=== PATIENT | male | born 1965 | race Caucasian/White ===

== ENCOUNTER 2024-05-22 06:21 | Inpatient (IN) | payer BC, SELFPAY ==
[2024-05-13 10:21] LABS: Hematocrit 44.4 % (39.0-52.0); Mean Corp Hgb Conc. 33.8 g/dL (33.0-37.0); Mean Corpuscular Hgb 32.1 pg (27.0-31.0); Mean Corpuscular Volume 94.9 fL (80.0-94.0); Mean Platelet Volume 9.8 fL (7.4-10.4); Platelet Count 253 10^3/uL (130-400); Red Blood Cell Count 4.68 10^6/uL (4.70-6.10); Red Cell Dist. Width 13.1 % (11.5-14.5); White Blood Cell Count 6.6 10^3/uL (4.8-10.8)
[2024-05-13 10:44] LABS: INR 0.96; PT 13.1 Sec (11.4-14.6)
[2024-05-13 10:45] LABS: APTT 27.6 Sec (23.4-35.0)
[2024-05-13 11:00] LABS: Blood Urea Nitrogen 24 mg/dl (9-20); Carbon Dioxide 27 mmol/L (22-30); Chloride 101 mmol/L (98-107); Glucose 92 mg/dl (70-99); Potassium 4.6 mmol/L (3.5-5.1); Sodium 137 mmol/L (135-145); Urine Albumin Negative (Neg - Trace); Urine Bilirubin Negative (Negative); Urine Character Clear (Clear); Urine Color Yellow; Urine Glucose Negative (Negative); Urine Ketone Negative (Negative); Urine Leukocyte Negative (Negative); Urine Nitrite Negative (Negative); Urine Occult Blood Negative (Negative); Urine Urobilinogen Negative (Neg - 1+); eGFR > 60.00
[2024-05-13 14:21] VITALS: BMI 30.3
[2024-05-22] VITALS (22 sets, daily range): BP systolic 95–117; BP diastolic 45–69; BMI 30.3
[2024-05-22] MEDS: NEBCIN 480 MG/100 ML ENEMA 1 BOTTLE RECTAL (06:47)
[2024-05-22] MEDS: NORMOSOL-R/PLASMALYTE-A 1000 IV ×3 (06:48→21:16)
--- NOTE | 2024-05-22 09:34 | W.IMMPOSTOP ---
Surgical Immed Post Op Note
-
Primary Surgeon: Bebe
Assisting Surgeon: Ethan
Pre-op Diagnosis: prostate cancer
Post-op Diagnosis: same
Procedure Performed: Radical perineal prostatectomy, bladder neck reconstruction
Anesthesia Type: GET
Specimen / Cultures: prostate gland, bladder neck and urethral margins for frozen section
Estimated Blood Loss: 350 ml
Complications: None
Operative Findings: median lobe
[2024-05-22 10:11] LABS: Hematocrit 42.9 % (39.0-52.0); Hemoglobin 14.2 g/dL (13.0-18.0)
[2024-05-22 10:38] LABS: Blood Urea Nitrogen 16 mg/dl (9-20); Calcium 8.9 mg/dl (8.4-10.2); Carbon Dioxide 24 mmol/L (22-30); Chloride 104 mmol/L (98-107); Estimated Creatinine Clearance 117 ml/min; Glucose 169 mg/dl (70-99); Potassium 4.4 mmol/L (3.5-5.1); Sodium 137 mmol/L (135-145); eGFR > 60.00
[2024-05-22] MEDS: DETROL LA 4 MG PO (11:32)
[2024-05-22] MEDS: TYLENOL 650 MG PO (14:03)
[2024-05-22] MEDS: EFFEXOR XR 75 MG PO (14:33)
--- NOTE | 2024-05-22 15:25 | PTCARENOTE ---
Pt received from the PACU via bed. Transport was w/o incident. Pt is AAOx3, HRR, Lungs are clear, resp. easy. VSS, Pt is afebrile. Pt denies pain or nausea at this time. Pt with a bulky guaze dressing to perineum. Small amount of blood tinged
drainage noted. Pt has a yane in place, drainage to be expected. Will reinforce dressing as needed. Pt instructed on plan of care. Pt verbalized understanding of instructions. Call negron is within place.
[2024-05-22] MEDS: TORADOL 15 MG IV ×2 (16:34→21:20)
[2024-05-22] MEDS: COLACE 100 MG PO (16:34)
[2024-05-22] MEDS: COLACE PO (16:34)
[2024-05-22] MEDS: FLUSH (NSS) 2 FLUSH IV (21:22)
[2024-05-22] MEDS: POLYSPORIN/DOUBLE ANTIBIOTIC 1 APPLIC TOPICAL (23:08)
[2024-05-23] MEDS: TORADOL 15 MG IV ×4 (02:58→21:07)
[2024-05-23] MEDS: FLUSH (NSS) 2 FLUSH IV ×2 (02:59→03:16)
[2024-05-23 03:10] VITALS: BP 107/63
[2024-05-23] MEDS: VALIUM INJECTION 5 MG IV ×2 (03:16→14:06)
[2024-05-23 06:42] LABS: Hematocrit 37.3 % (39.0-52.0); Hemoglobin 12.7 g/dL (13.0-18.0); Mean Corpuscular Hgb 32.2 pg (27.0-31.0); Mean Corpuscular Volume 94.7 fL (80.0-94.0); Mean Platelet Volume 9.8 fL (7.4-10.4); Platelet Count 248 10^3/uL (130-400); Red Blood Cell Count 3.94 10^6/uL (4.70-6.10); Red Cell Dist. Width 13.2 % (11.5-14.5); White Blood Cell Count 9.5 10^3/uL (4.8-10.8)
[2024-05-23 07:25] LABS: Blood Urea Nitrogen 20 mg/dl (9-20); Calcium 8.9 mg/dl (8.4-10.2); Carbon Dioxide 27 mmol/L (22-30); Chloride 104 mmol/L (98-107); Estimated Creatinine Clearance 117 ml/min; Glucose 90 mg/dl (70-99); Potassium 3.9 mmol/L (3.5-5.1); Sodium 139 mmol/L (135-145); eGFR > 60.00
[2024-05-23] MEDS: NORMOSOL-R/PLASMALYTE-A 1000 IV (07:26)
[2024-05-23 08:00] VITALS: BP 123/73
[2024-05-23] MEDS: LEVAQUIN 100 IV (09:03)
[2024-05-23] MEDS: EFFEXOR XR 75 MG PO (09:04)
[2024-05-23] MEDS: COLACE 100 MG PO ×3 (09:04→19:17)
[2024-05-23] MEDS: POLYSPORIN/DOUBLE ANTIBIOTIC 1 APPLIC TOPICAL ×2 (09:05→21:09)
--- NOTE | 2024-05-23 09:21 | W.PN.URO.CBU ---
Today's Communication / Plan
-
encouraFGE OOB STOP IV TEACH MELO CARE
Assessment / Plan
-
stable post rad prostatectomy yane out encourage oob and po
Diagnosis
-
Date of Service: May 23, 2024
-
Patient Diagnosis:prostate cancer
Post Op Day: 1
Subjective
-
min pain
Objective
-
Vital Signs
Temp Pulse Resp BP Pulse Ox
98.5 F 66 18 123/73 98
05/23/24 08:00 05/23/24 08:00 05/23/24 08:00 05/23/24 08:00 05/23/24 08:00
Intake and Output
05/22/24 05/23/24 05/24/24
06:59 06:59 06:59
Intake Total 2000 / 1999
Output Total 860 / 860
Balance 1140 / 1140
Intake:
Oral fluids 600 / 600
IV fluids (Total) 1400 / 1400
normosol 200 / 200
IV piggybacks 0 / 0
Output:
Urine, Melo 860 / 860
Laboratory Results
05/23/24 05:12
05/23/24 05:12
Review of Systems
-
: Dark Urine
Physical Exam
-
General - well developed, well nourished, no acute distress
Chest - clear bilaterally
Abdomen - soft, non-tender, positive bowel sounds, no CVAT, no incisional pain or distention
Genitalia - normal
Rectal - normal
Skin - warm & dry with no rash
Neuro - AOx3, no motor deficits
Extremities - no clubbing, no cyanosis, no edema
Incision - clean, dry
Dressing - clean, dry, intact
Care Review
Data Reviewed
Discussed with: Nursing
[2024-05-23 11:20] VITALS: BP 140/86
--- NOTE | 2024-05-23 12:22 | VNURNOTE ---
Home Health Liaison met with patient and son at bedside to discuss [facility] nurse/therapy, visits, schedule and homebound status. Patient is agreeable and understands that visits at home will be 2-3 x per week to assess and teach medical management and
[place] care. [facility] brochure provided with contact information. Patient is aware that [facility] will contact them for start of care in 1-2 days after discharge from .
[facility] referral completed in [facility].
--- NOTE | 2024-05-23 14:35 | CM ---
Met with pt at bedside
Pt reports he lives with and [id number] in a 2 story home; 1 step to enter, 15 steps to 2nd fl. + 1/2 bath on FF
Independent, employed, drives
DME - no past hx
SNF/HH - no past hx
Has ride at discharge
PCP - Dawna Aragon
Pharm -[facility] - [place]
CM consult - [facility]/HH
Discussed with pt - agreeable to HH - no preference
TT sent to [facility] Liaison for HH needs
Plan - home with [facility]
[2024-05-23] MEDS: NORMOSOL-R/PLASMALYTE-A IV (15:44)
[2024-05-23 23:52] VITALS: BP 129/78
[2024-05-24 07:30] VITALS: BP 111/75
--- NOTE | 2024-05-24 07:37 | W.PN.UPDATE ---
Update Note
Progress Note Update
pt stable after RPP
urine clear
wound dry and instact
discharge today
--- NOTE | 2024-05-24 07:37 | W.DS.TRANS ---
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
-
Discharge Instructions:
Discharge Diagnosis/Procedures Prostate cancer
Diet No restrictions
Activity No strenuous activity
Additional Activity for 2 weeks
Driving Restrictions No driving for 2 weeks
Bathing Restrictions Shower off after each bowel movement the next 5
da
Other Services VN
Wound Care [facility] to remove Lopez catheter Sunday06/02/24 at
around 9:30 am
Instructions:
Stand-Alone Forms:
Changes to Home Medications: No
Discharge Medications:
DC Medications w/original date entered in [facility]
coQ10 (ubiquinol) 100 mg capsule 100 mg PO DAILY 05/15/24
multivitamin 1 tab PO DAILY 05/15/24
rosuvastatin 10 mg tablet 10 mg PO Q48H 05/15/24
venlafaxine 75 mg tablet,extended release 24 hr 75 mg PO DAILY 05/15/24
Home Medication Changes
Pending Results: No
[2024-05-24] MEDS: EFFEXOR XR 75 MG PO (08:39)
[2024-05-24] MEDS: COLACE 100 MG PO ×2 (08:39→11:46)
[2024-05-24] MEDS: LEVAQUIN 100 IV (08:39)
[2024-05-24] MEDS: POLYSPORIN/DOUBLE ANTIBIOTIC TOPICAL (08:40)
--- NOTE | 2024-05-24 10:41 | CM ---
Patient seen at bedside. Patient states family will transport. Patient for discharge home today with [facility] to follow. CM left for [facility] to notify of discharge. CM will continue to follow for discharge planning needs.
Plan; home with no needs
[2024-05-24 11:46] VITALS: BP 111/91
== END 2024-05-24 11:55 | disposition home health service (06) | DRG 708 ==
LOC: 2 SOUTH 06:21
PROVIDERS: ADMITTING PHYSICIAN Specialist; FAMILY PHYSICIAN Internal Medicine
PROC: 0VT00ZZ Resection of Prostate, Open Approach (ICD-10-PCS; 2024-05-22)
DX: C61 Malignant neoplasm of prostate (principal)
CPT/HCPCS: 88305; 88309; 88332; 36415; 80048; 81003; 85014; 85018; 85027; 85610; 85730; 86850; 86900; 86901; 88331; 93005; 99406; A4648